=== PATIENT | female | born 1955 | race Caucasian/White ===

== ENCOUNTER 2020-09-11 17:04 | Inpatient (IN) | payer MEDICARE ==
[~2020-09-11] VITALS: Ht 167.6 cm; Wt 120.0 kg
[2020-09-11 18:15] LABS: HEMATOCRIT 39.3 % (36.0-48.0); HEMOGLOBIN 12.7 g/dL (12-16); LYMPHOCYTE ABS# 1.42 10x3/uL (1.18-3.74); MCH 32.6 pg (26.0-34.0); MCHC 32.3 g/dL (31.0-37.0); MEAN PLATELET VOLUME 9.3 fL (7.4-10.4); NEUTROPHIL ABS# 18.11 10x3/uL (1.56-6.13); PLATELET COUNT 210 10x3/uL (130-400); RBC 3.89 10x6/uL (4.00-5.40); WBC 21.2 10x3/uL (4.8-10.8)
[2020-09-11 18:24] LABS: ANION GAP 14.1 mmol/L (8-16); CALCIUM 8.7 mg/dL (8.5-10.1); CARBON DIOXIDE 26.4 mmol/L (21.0-32.0); POTASSIUM - SERUM 3.5 mmol/L (3.5-5.1)
[2020-09-11 18:31] LABS: ALBUMIN 3.1 g/dL (3.4-5.0); BILIRUBIN - TOTAL 3.3 mg/dL (0.2-1.3); PROTEIN - SERUM 7.5 g/dL (6.4-8.2)
[2020-09-11 18:57] LABS: EOSINOPHILS 2 % (0-7); LYMPHOCYTES 11 % (15-50); MONOCYTES 3 % (2-11); NEUTROPHILS 84 % (40-80); PLATELET ESTIMATE NORMAL
[2020-09-11 19:09] LABS: APTT 30.1 SECONDS (22.8-39.4); INR 1.26 (0.85-1.17); PROTIME 14.7 SECONDS (11.6-15.0)
[2020-09-11 19:32] LABS: CKMB 0.7 U/L (0.0-3.6); CREATINE KINASE 423 UL (21-215)
[2020-09-11 19:41] LABS: TROPONIN-I 0.017 ng/mL (0.000-0.060)
[2020-09-11 20:54] LABS: BILIRUBIN NEGATIVE (NEGATIVE); KETONE MODERATE mg/dL (NEGATIVE); NITRITE POSITIVE (NEGATIVE)
[2020-09-11 20:55] LABS: SQUAMOUS EPITHELIAL 0-5 HPF (0-4); WHITE CELLS - URINE 25-50 HPF (0-4)
[2020-09-11 20:56] LABS: BACTERIA MANY HPF (NONE SEEN)
--- NOTE | 2020-09-11 22:55 | NUR ---
RECEIVED REPORT FROM ER, AWAITING PT TRANSFER.
[2020-09-11] MEDS ORDERED: ULTRAM50 MG PO (23:18)
[2020-09-11] MEDS ORDERED: OMEPRAZOLE20 M1 PO (23:21)
[2020-09-11 23:31] VITALS: BP 132/62; BMI 42.3
[2020-09-12] VITALS: BP 132/62
--- NOTE | 2020-09-12 00:20 | NUR ---
RECEIVED PT FROM ER VIA WHEELCHAIR. PT SITTING UP IN BED A&O X4. PIV TO LEFT AC, PATENT AND INFUSING, NO REDNESS OR SWELLING. RIGHT FOOT DEFORMED AND SCARS PRESENT, RASH TO RIGHT CALF. PT ABLE TO AMBULATE WITH ASSIST. PLACED SCDS ON BILAT LOWER EXTREM. EDUCATED PT ON ISP, CL AND NEEDS, VERBALIZED UNDERSTANDING. BED LOW, CL IN REACH.
[2020-09-12 04:00] VITALS: BP 133/59
[2020-09-12 06:46] LABS: CKMB 1.1 U/L (0.0-3.6); CREATINE KINASE 477 UL (21-215); TROPONIN-I 0.021 ng/mL (0.000-0.060)
--- NOTE | 2020-09-12 07:10 | NUR ---
PT RESTING IN BED. PRODUCTIVE COUGH NOTED AT THIS TIME. PT REPORTS TO HAVING SORE THROAT AND SORENESS IN CHEST AREA FROM COUGHING. IV TO LEFT FOREARM WITH NS @ 125ML/HR INFUSING VIA PUMP. SITE WITHOUT REDNESS OR EDEMA NOTED. REDNESS TO RIGHT LOWER EXTREMITY. PT REQUEST ICE CHIPS AT THIS TIME, PROVIDED PT WITH ICE CHIPS TO HELP WITH SORE THROAT. DENIES FURTHER NEEDS AT THIS TIME. CL WITHIN REACH. ENCOURAGED TO CALL WITH NEEDS. CONTINUE POC
[2020-09-12 08:38] VITALS: BP 137/74
[2020-09-12 08:54] LABS: BASOPHILS 0.1 % (0-2); EOSINOPHILS 0 % (0-7); HEMATOCRIT 35.2 % (36.0-48.0); HEMOGLOBIN 11.6 g/dL (12-16); IMMATURE GRANULOCYTES 0.7 % (0-5); LYMPHOCYTE ABS# 1.46 10x3/uL (1.18-3.74); LYMPHOCYTES 7.9 % (15-50); MCH 32.8 pg (26.0-34.0); MCV 99.4 fL (80.0-100.0); MEAN PLATELET VOLUME 9.2 fL (7.4-10.4); NEUTROPHIL ABS# 15.92 10x3/uL (1.56-6.13); NEUTROPHILS 86.3 % (40-80); PLATELET COUNT 180 10x3/uL (130-400); RBC 3.54 10x6/uL (4.00-5.40); WBC 18.4 10x3/uL (4.8-10.8)
[2020-09-12 09:09] LABS: ALBUMIN 2.6 g/dL (3.4-5.0); ALKALINE PHOSPHATASE 86 U/L (30-120); ALT (SGPT) 23 U/L (10-68); BILIRUBIN - TOTAL 2.32 mg/dL (0.2-1.3); CALC OSMOLALITY 277 mosm/kg (275-300); CALCIUM 7.9 mg/dL (8.5-10.1); CARBON DIOXIDE 27.2 mmol/L (21.0-32.0); CHLORIDE - SERUM 104 mmol/L (98-107); CREATININE - SERUM 0.8 mg/dL (0.6-1.3); GLUCOSE 96 mg/dL (74-106); POTASSIUM - SERUM 3.1 mmol/L (3.5-5.1); PROTEIN - SERUM 6.2 g/dL (6.4-8.2); SODIUM 139 mmol/L (136-145); UREA NITROGEN 13 mg/dL (7-18); eGFR NON AFRICAN AMERICAN 76 mL/min (90-120)
[2020-09-12 09:20] LABS: AMYLASE - SERUM 13 U/L (25-115); MAGNESIUM - SERUM 1.9 mg/dL (1.8-2.4)
[2020-09-12 09:26] LABS: LIPASE 35 U/L (73-393)
[2020-09-12 12:15] VITALS: BP 130/64
[2020-09-12 13:59] VITALS: Ht 167.6 cm; Wt 120.0 kg
[2020-09-12 15:49] VITALS: BP 161/74
--- NOTE | 2020-09-12 19:45 | NUR ---
RECEIVED BEDSIDE REPORT. PT LAYING IN BED A&O X4. PIV TO LEFT FOREARM, PATENT AND INFUSING, NO REDNESS OR SWELLING. TELEMETRY IN PLACE, [address]. PT ABLE TO AMBULATE WITH ASSIST. EDUCATED PT ON CL AND NEEDS, VERBALIZED UNDERSTANDING. BED LOW, CL IN REACH.
[2020-09-12 20:00] VITALS: BP 121/70
[2020-09-13 04:00] VITALS: BP 130/63
[2020-09-13 06:38] LABS: BASOPHILS 0.2 % (0-2); EOSINOPHILS 0.5 % (0-7); IMMATURE GRANULOCYTES 0.5 % (0-5); LYMPHOCYTE ABS# 1.76 10x3/uL (1.18-3.74); LYMPHOCYTES 10.6 % (15-50); MCH 32.3 pg (26.0-34.0); MCHC 32.4 g/dL (31.0-37.0); MCV 99.7 fL (80.0-100.0); MEAN PLATELET VOLUME 9.9 fL (7.4-10.4); MONOCYTES 7.3 % (2-11); NEUTROPHILS 80.9 % (40-80); PLATELET COUNT 202 10x3/uL (130-400); RBC 3.41 10x6/uL (4.00-5.40); RDW 14.2 % (11.5-14.5); WBC 16.7 10x3/uL (4.8-10.8)
[2020-09-13 07:05] LABS: ALBUMIN 2.4 g/dL (3.4-5.0); ALKALINE PHOSPHATASE 74 U/L (30-120); ALT (SGPT) 21 U/L (10-68); BILIRUBIN - TOTAL 1.49 mg/dL (0.2-1.3); CALC OSMOLALITY 281 mosm/kg (275-300); CALCIUM 8.2 mg/dL (8.5-10.1); CARBON DIOXIDE 24.8 mmol/L (21.0-32.0); CHLORIDE - SERUM 107 mmol/L (98-107); CREATININE - SERUM 0.7 mg/dL (0.6-1.3); GLUCOSE 84 mg/dL (74-106); PROTEIN - SERUM 6.4 g/dL (6.4-8.2); SODIUM 142 mmol/L (136-145); UREA NITROGEN 12 mg/dL (7-18); eGFR NON AFRICAN AMERICAN 89 mL/min (90-120)
--- NOTE | 2020-09-13 07:08 | NUR ---
PT RESTING IN BED WITH EYES CLOSED. NO ACUTE DISTRESS NOTED AT THIS TIME. IV TO LEFT FOREARM WITH NS @ 125ML/HR INFUSING VIA PUMP. SITE WITHOUT REDNESS OR EDEMA. REDNESS NOTED TO RIGHT LOWER EXTREMITY. NO N/V/D AT THIS TIME. CL WITHIN REACH. ENCOURAGED TO CALL WITH NEEDS. CONTINUE POC
[2020-09-13 09:10] VITALS: BP 149/79
[2020-09-13 12:35] VITALS: BP 142/69
--- NOTE | 2020-09-13 14:46 | NUR ---
RECEIVE SHIFT REPORT. RESTING IN BED WITHOUT ANY COMPLAINTS. CALL LIGHT IN REACH. CONTINUE POC AND SAFETY PRECAUTIONS.
[2020-09-13 16:44] VITALS: BP 141/74
--- NOTE | 2020-09-13 19:45 | NUR ---
RECEIVED BEDSUDE REPORT. PT LAYING IN BED, A&O X4. PIV TO LEFT FOREARM, PATENT AND INFUSING, NO REDNESS OR SWELLING. REDNESS/RASH TO RIGHT CALF, FOOT DERFORED AND SCARS PRESENT. PT ABLE TO AMBUALTE WITH ASSIST. EDUCATED PT ON CL AND NEEDS, VERBALIZED UNDERSTANDING. BED LOW, CL IN REACH.
[2020-09-13 20:00] VITALS: BP 136/62
[2020-09-14 04:00] VITALS: BP 126/64
[2020-09-14 06:06] LABS: BASOPHILS 0.3 % (0-2); EOSINOPHILS 1.9 % (0-7); HEMATOCRIT 33.1 % (36.0-48.0); HEMOGLOBIN 10.7 g/dL (12-16); IMMATURE GRANULOCYTES 0.6 % (0-5); LYMPHOCYTE ABS# 2.36 10x3/uL (1.18-3.74); LYMPHOCYTES 19.8 % (15-50); MCH 32.4 pg (26.0-34.0); MCHC 32.3 g/dL (31.0-37.0); MCV 100.3 fL (80.0-100.0); MEAN PLATELET VOLUME 9.4 fL (7.4-10.4); MONOCYTES 7.9 % (2-11); NEUTROPHIL ABS# 8.26 10x3/uL (1.56-6.13); NEUTROPHILS 69.5 % (40-80); PLATELET COUNT 229 10x3/uL (130-400); RDW 14.3 % (11.5-14.5)
[2020-09-14 06:10] LABS: WBC 11.9 10x3/uL (4.8-10.8)
[2020-09-14 06:52] LABS: ALBUMIN 2.3 g/dL (3.4-5.0); ALKALINE PHOSPHATASE 66 U/L (30-120); ALT (SGPT) 18 U/L (10-68); BILIRUBIN - TOTAL 1.02 mg/dL (0.2-1.3); CALC OSMOLALITY 281 mosm/kg (275-300); CALCIUM 8.1 mg/dL (8.5-10.1); CHLORIDE - SERUM 108 mmol/L (98-107); CREATININE - SERUM 0.8 mg/dL (0.6-1.3); GLUCOSE 90 mg/dL (74-106); POTASSIUM - SERUM 3.4 mmol/L (3.5-5.1); PROTEIN - SERUM 6.2 g/dL (6.4-8.2); SODIUM 142 mmol/L (136-145); UREA NITROGEN 10 mg/dL (7-18); eGFR NON AFRICAN AMERICAN 76 mL/min (90-120)
[2020-09-14 09:11] VITALS: BP 126/68
--- NOTE | 2020-09-14 12:40 | NUR ---
PT ALERT AND ORIENTED. NO NEEDS AT THIS TIME. QUESTIONS ASKED AND ANSWERED ABOUT NEW ABX ROCEPHIN. CL IN REACH. WCTM
[2020-09-14 12:57] VITALS: BP 117/69
--- NOTE | 2020-09-14 14:41 | NUR ---
PT REQUESTING PAIN MEDS BECAUSE SHE FEELS NAUSEOUS AND HAS HAD A BM. PT ASSISTED TO BSC. PT GIVEN FRESH EMESIS BAG, LINENS, AND WIPES. COOL WASH CLOTHES APPLIED TO FOREHEAD AND NECK WELL AN ICE PACK. ZOFRAN GIVEN PER EMAR. LEMON VIEJAS YANA, SALTINE CRACKERS GIVEN. WCTM
--- NOTE | 2020-09-14 19:45 | NUR ---
RECEIVED BEDSIDE REPORT. PT LAYING IN BED A&O X4. PIV TO LEFT FOREARM, PATENT AND INFUSING, NO REDNESS OR SWELLING. RASH/REDNESS TO RIGHT CALF, FOOT DEFORMED. PT ABLE TO AMBUALTE WITH ASSIST. EDUCATED PT ON CL AND NEEDS, VERBALIZED UNDERSTANDING. BED LOW, CL IN REACH.
[2020-09-14 20:00] VITALS: BP 132/62
[2020-09-15 02:55] LABS: BASOPHILS 0.2 % (0-2); EOSINOPHILS 0.8 % (0-7); HEMATOCRIT 35.9 % (36.0-48.0); HEMOGLOBIN 11.7 g/dL (12-16); IMMATURE GRANULOCYTES 1.1 % (0-5); LYMPHOCYTE ABS# 1.78 10x3/uL (1.18-3.74); LYMPHOCYTES 18.8 % (15-50); MCH 32.5 pg (26.0-34.0); MCHC 32.6 g/dL (31.0-37.0); MCV 99.7 fL (80.0-100.0); MEAN PLATELET VOLUME 9.2 fL (7.4-10.4); MONOCYTES 5.8 % (2-11); NEUTROPHIL ABS# 6.95 10x3/uL (1.56-6.13); NEUTROPHILS 73.3 % (40-80); PLATELET COUNT 246 10x3/uL (130-400); RDW 14.2 % (11.5-14.5); WBC 9.5 10x3/uL (4.8-10.8)
[2020-09-15 03:12] LABS: ALBUMIN 2.6 g/dL (3.4-5.0); ANION GAP 11.5 mmol/L (8-16); BILIRUBIN - TOTAL 0.73 mg/dL (0.2-1.3); CALCIUM 8.1 mg/dL (8.5-10.1); CARBON DIOXIDE 28.4 mmol/L (21.0-32.0); CREATININE - SERUM 0.9 mg/dL (0.6-1.3); MAGNESIUM - SERUM 1.8 mg/dL (1.8-2.4); PROTEIN - SERUM 6.7 g/dL (6.4-8.2)
[2020-09-15 03:17] LABS: POTASSIUM - SERUM 2.9 mmol/L (3.5-5.1)
[2020-09-15 04:00] VITALS: BP 133/70
[2020-09-15 09:33] VITALS: BP 120/65
[2020-09-15] MEDS ORDERED: BACTRIM DS TAB1 EAC1 PO (10:49)
[2020-09-15] MEDS ORDERED: FLAGYL500 MG PO (10:49)
--- NOTE | 2020-09-15 11:48 | MORECARE ---
CASE MANAGEMENT DISCHARGE SUMMARY PATIENT: FESTUS GANDHI UNIT: [id number] ADM DATE: 09/11/20 AGE: 65 : 56 SEX: F ROOM/BED: D.2204 AUTHOR: MARCELINO,DOC PHYSICIAN: REFERRING PHYSICIAN: ROOPA COOL MD DATE OF SERVICE: 09/15/20 Case Management Discharge Planning Summary COMMENTS ENTERED DATE: 09/15/20 11:44 CT COMMENT TYPE: Discharge Planning REVIEWER: Beulah Mcmahan CM met with patient at bedside after obtaining verbal consent. CM discussed availability / needs of home health, REHAB and medical equipment. PATIENT DENIES ANY NEEDS. LIVES AT HOME WITH FAMILY. AMBULATORY WITH NO DEVICE USED. PCP IS DR. MIKE. IMM SIGNED AND COPY ON CHART. CM TO FOLLOW AND ASSIST NEEDED. DCP REVIEW SUMMARY ANTICIPATED D/C DATE: EXPECTED LOS : CASE STATUS: DCP Initiated INITIAL REVIEW: 09/11/2020 INITIAL REVIEWER: Beulah Mcmahan FINAL DISCHARGE DISPOSITION: : FINAL REVIEWER: FINAL REVIEW DATE: DCP Focus Questions & Answers DCP REV -DCP Review Added on: 09/15/20 11:43 am QUESTION: ANSWER DCP Screen High Risk Factors: : None Walking limitation: Patient stated self rated walking limitation present? : No Age: : 45 - 65 Disability ranking: : Grade 1: No significant disability DCP Evaluation Patient's ability to cope with chronic illness : d. No chronic illness Mental health screen: : No mental health history Would patient like to participate in any Care Coordination programs (if applicable): : Not applicable DCP Re-evaluation Would patient like to participate in any Care Coordination programs (if applicable): : Not applicable PATIENT: FESTUS GANDHI ENCOUNTER: [id number] MEDICAL RECORD#: [id number] ADMISSION DATE: 09/11/2020 DISCHARGE DATE: ATTENDING MD: SILVINA COOL : AGE: 65 MARITAL STATUS: W DC PLAN ID: [id number] FACILITY: [facility] PRINTED ON: 09/15/20 11:48 CT All edits/amendments must be made on the electronic document DICTATION DATE: 09/15/20 114 MORTGAGE ADVISOR: CM 09/15/20 1148 RPT#: [id number] DC DATE: STATUS: ADM IN [facility] [address] [place] [address] END OF REPORT
[2020-09-15 13:40] VITALS: BP 122/60
--- NOTE | 2020-09-15 18:09 | NUR ---
IV THERAPY REMOVED FROM LEFT AC WITH TIP INTACT. DISCHARGE INSTRUCTIONS GIVEN. PT VERBALIZED UNDERSTANDING. WHEELED TO ER EXIT TO MEET GRANDDAUGHTER
--- NOTE | 2020-09-19 11:59 | MORECARE ---
CASE MANAGEMENT DISCHARGE SUMMARY PATIENT: FESTUS GANDHI UNIT: [id number] ADM DATE: 09/11/20 AGE: 65 : 56 SEX: F ROOM/BED: D.2204 AUTHOR: MARCELINO,DOC PHYSICIAN: REFERRING PHYSICIAN: ROOPA COOL MD DATE OF SERVICE: 09/19/20 Case Management Discharge Planning Summary CT Patient Name: FESTUS GANDHI Attending MD : AKIL COOL, Medical Record: [id number] Encounter : [id number] Facility : [address] [place] [address] Admission Date : 121:16 Center Discharge Date : 09/15/2020 [facility] [place] [address] Date of : DC Plan ID : [id number] Age/Sex/Martia : 65/ F/W Printed on : 09/19/20 11:57 CT DCP Review Details Anticipated D/C: Expected LOS : Case Status : COMPLET - Initial Reviewe: [id number] - Beulah Mcmahan Initial Review: 09/11/2020 Planned Disposi: - Final Discharge: - Final Reviewer : : Final Review : Comments CT Entered Date Type Reviewer 09/15/20 11:44 CT Discharge Planning Beulah Mcmahan Comment CM met with patient at bedside after obtaining verbal consent. CM discussed availability / needs of home health, REHAB and medical equipment. PATIENT DENIES ANY NEEDS. LIVES AT HOME WITH FAMILY. AMBULATORY WITH NO DEVICE USED. PCP IS DR. MIKE. IMM SIGNED AND COPY ON CHART. CM TO FOLLOW AND ASSIST NEEDED. DCP Focus Questions & Answers DCP Screen High Risk Factors: None Walking limitation: Patient stated self rated No walking limitation present? Age: 45 - 65 Disability ranking: Grade 1: No significant disability DCP Evaluation Patient's ability to cope with chronic illness d. No chronic illness Would patient like to participate in any Care Not applicable Coordination programs (if applicable): Mental health screen: No mental health history DCP Re-evaluation Would patient like to participate in any Care Not applicable Coordination programs (if applicable): [facility] FESTUS GANDHI MR#: [id number] /Age/Sex/[id number] /65/F /W Attending Physician Name: Kory [id number] Patient Account:[id number] [facility] Page -1 of 1 All edits/amendments must be made on the electronic document DICTATION DATE: 09/19/201156 MATERIALS PLANNER: CM 09/19/201156 RPT#: [id number] DC DATE:09/15/20 STATUS: DIS IN [facility] [address] [place] [address] END OF REPORT
== END 2020-09-15 18:10 | disposition home or self-care (01) | DRG 603 ==
LOC: D.ER 17:04 → D.MS 21:16
PROVIDERS: Family Medicine; ADMIT Family Medicine; ATTEND Family Medicine
DX: L03.115 Cellulitis of right lower limb (principal); N39.0 Urinary tract infection, site not specified; K52.9 Noninfective gastroenteritis and colitis, unspecified; D72.829 Elevated white blood cell count, unspecified; K21.9 Gastro-esophageal reflux disease without esophagitis; M19.90 Unspecified osteoarthritis, unspecified site; D75.89 Other specified diseases of blood and blood-forming organs; E80.6 Other disorders of bilirubin metabolism

== ENCOUNTER 2020-10-02 12:28 | Inpatient (IN) | payer MEDICARE ==
[~2020-10-02] VITALS: Ht 167.6 cm; Wt 117.9 kg
[~2020-10-02 12:28] MED LIST: BACTRIM DS TAB1 EAC1 PO; FLAGYL500 MG PO; OMEPRAZOLE20 M1 PO; ULTRAM50 MG PO
--- NOTE | 2020-10-02 14:01 | NUR ---
SALINE LOCK TO LEFT AC. BLOOD FOR LABS DRAWN.
[2020-10-02 14:09] LABS: LYMPHOCYTE ABS# 2.47 10x3/uL (1.18-3.74); MCH 33.3 pg (26.0-34.0); MCHC 32.5 g/dL (31.0-37.0); MCV 102.6 fL (80.0-100.0); MEAN PLATELET VOLUME 9.8 fL (7.4-10.4); NEUTROPHIL ABS# 18.65 10x3/uL (1.56-6.13); PLATELET COUNT 299 10x3/uL (130-400); RDW 14.7 % (11.5-14.5); WBC 23.7 10x3/uL (4.8-10.8)
[2020-10-02 14:13] LABS: ANION GAP 12.8 mmol/L (8-16); CALCIUM 8.9 mg/dL (8.5-10.1); CARBON DIOXIDE 28.5 mmol/L (21.0-32.0); CREATININE - SERUM 0.9 mg/dL (0.6-1.3); POTASSIUM - SERUM 3.3 mmol/L (3.5-5.1)
--- NOTE | 2020-10-02 14:20 | NUR ---
UP TO BATHROOM WITH DIARRHEA. INSTRUCTED TO COLLECT URINE IN POTTY HAT.
[2020-10-02 14:23] LABS: ALBUMIN 2.9 g/dL (3.4-5.0); BILIRUBIN - TOTAL 2.91 mg/dL (0.2-1.3); PROTEIN - SERUM 7.5 g/dL (6.4-8.2); TROPONIN-I 0.028 ng/mL (0.000-0.060)
--- NOTE | 2020-10-02 14:30 | NUR ---
DR. MCGINNIS AT BEDSIDE. PATIENT STATES NO URINE OUTPUT, UNABLE TO OBTAIN SPECIMEN.
--- NOTE | 2020-10-02 14:57 | NUR ---
PATIENT INSTRUCTED STOOL SPECIMEN NEEDED WITH NEXT EPISODE OF DIARRHEA.
[2020-10-02 15:30] LABS: LYMPHOCYTES 13 % (15-50); MONOCYTES 1 % (2-11); NEUTROPHILS 86 % (40-80); PLATELET ESTIMATE NORMAL
--- NOTE | 2020-10-02 15:34 | NUR ---
STOOL SPECIMEN TO LAB. NO URINE FOR UA/CULTURE.
[2020-10-02 17:43] LABS: BILIRUBIN NEGATIVE (NEGATIVE); KETONE LARGE mg/dL (NEGATIVE); NITRITE NEGATIVE (NEGATIVE); UROBILINOGEN NORMAL mg/dL (< 2)
[2020-10-02 17:49] LABS: WHITE CELLS - URINE 0-5 HPF (0-4)
[2020-10-02 17:50] LABS: BACTERIA MODERATE HPF (NONE SEEN); SQUAMOUS EPITHELIAL 0-5 HPF (0-4)
--- NOTE | 2020-10-02 18:46 | NUR ---
PT ARRIVED ON UNIT VIA STRETCHER ESCORTED BY ER NURSE. TRANSFERRED TO BED AND POSITIONED FOR COMFORT. IV FLUIDS INFUSING PER ORDER TO PATENT IV ON LEFT AC. BED ALARM TURNED ON PT VERY DROWSEY AT THIS TIME.
[2020-10-02 19:17] VITALS: BP 126/59; BMI 42.0
--- NOTE | 2020-10-02 19:27 | NUR ---
ADMISSION ASSESSMENT AND HISTORY COMPLETE. VITALS STABLE AND PT IS AFEBRILE. DENIES NEED FOR PAIN MED AT THIS TIME...PT REMAINS VERY DROWSEY, BUT RESPONDS TO VOICE.
--- NOTE | 2020-10-02 20:19 | NUR ---
DISCONTINUED NS W/ 20 KCL PER ORDER. REDUCED NS TO 100 ML/HR PER ORDER. GAVE IVP PROTONIX PER NEW ORDER. PT RESTING WITH EYES CLOSED AND EASY RESPIRATIONS. BED ALARM ON FOR SAFETY.
[2020-10-03] VITALS: BP 139/56; BP 140/46
[2020-10-03 04:00] VITALS: BP 139/56
[2020-10-03 04:52] LABS: BASOPHILS 0.2 % (0-2); EOSINOPHILS 1.1 % (0-7); HEMATOCRIT 36.8 % (36.0-48.0); HEMOGLOBIN 11.8 g/dL (12-16); IMMATURE GRANULOCYTES 0.3 % (0-5); LYMPHOCYTE ABS# 1.88 10x3/uL (1.18-3.74); LYMPHOCYTES 11.3 % (15-50); MCH 32.6 pg (26.0-34.0); MCHC 32.1 g/dL (31.0-37.0); MCV 101.7 fL (80.0-100.0); MEAN PLATELET VOLUME 9.9 fL (7.4-10.4); MONOCYTES 8.8 % (2-11); NEUTROPHIL ABS# 13.01 10x3/uL (1.56-6.13); NEUTROPHILS 78.3 % (40-80); PLATELET COUNT 291 10x3/uL (130-400); RBC 3.62 10x6/uL (4.00-5.40); RDW 14.8 % (11.5-14.5)
[2020-10-03 05:02] LABS: WBC 16.6 10x3/uL (4.8-10.8)
[2020-10-03 05:05] LABS: APTT 25.6 SECONDS (22.8-39.4); INR 1.22 (0.85-1.17); PROTIME 14.3 SECONDS (11.6-15.0)
[2020-10-03 05:26] LABS: ALBUMIN 2.4 g/dL (3.4-5.0); BILIRUBIN - TOTAL 1.92 mg/dL (0.2-1.3); CALCIUM 8.2 mg/dL (8.5-10.1); CARBON DIOXIDE 25.8 mmol/L (21.0-32.0); CREATININE - SERUM 0.9 mg/dL (0.6-1.3); PHOSPHOROUS 2.8 mg/dL (2.5-4.9); PROTEIN - SERUM 6.6 g/dL (6.4-8.2)
[2020-10-03 05:27] LABS: ANION GAP 12.1 mmol/L (8-16); POTASSIUM - SERUM 2.9 mmol/L (3.5-5.1)
[2020-10-03 09:34] VITALS: BP 128/58
[2020-10-03 12:39] VITALS: Ht 167.6 cm; Wt 117.9 kg
[2020-10-03 13:23] VITALS: BP 124/60
[2020-10-03 18:55] VITALS: BP 124/62
--- NOTE | 2020-10-04 02:09 | NUR ---
I have reviewed this patient and I concur with the Shift Assessment completed by the Licensed Practical Nurse today this shift.
[2020-10-04 04:00] VITALS: BP 103/40
[2020-10-04 05:42] LABS: BASOPHILS 0.2 % (0-2); EOSINOPHILS 3.4 % (0-7); HEMATOCRIT 37.6 % (36.0-48.0); IMMATURE GRANULOCYTES 0.5 % (0-5); LYMPHOCYTES 10.1 % (15-50); MCH 32.6 pg (26.0-34.0); MCHC 31.9 g/dL (31.0-37.0); MCV 102.2 fL (80.0-100.0); MEAN PLATELET VOLUME 10.1 fL (7.4-10.4); MONOCYTES 6.3 % (2-11); NEUTROPHIL ABS# 11.02 10x3/uL (1.56-6.13); NEUTROPHILS 79.5 % (40-80); PLATELET COUNT 317 10x3/uL (130-400); RBC 3.68 10x6/uL (4.00-5.40); RDW 14.9 % (11.5-14.5); WBC 13.9 10x3/uL (4.8-10.8)
[2020-10-04 06:01] LABS: CALC OSMOLALITY 274 mosm/kg (275-300); CARBON DIOXIDE 24.7 mmol/L (21.0-32.0); CHLORIDE - SERUM 104 mmol/L (98-107); CREATININE - SERUM 0.7 mg/dL (0.6-1.3); GLUCOSE 77 mg/dL (74-106); MAGNESIUM - SERUM 1.8 mg/dL (1.8-2.4); PHOSPHOROUS 2.5 mg/dL (2.5-4.9); POTASSIUM - SERUM 3.2 mmol/L (3.5-5.1); SODIUM 140 mmol/L (136-145); eGFR NON AFRICAN AMERICAN 89 mL/min (90-120)
[2020-10-04 06:02] LABS: UREA NITROGEN 5 mg/dL (7-18)
[2020-10-04 08:49] VITALS: BP 128/68
[2020-10-04 12:19] VITALS: BP 129/60
[2020-10-04 18:40] VITALS: BP 116/41
[2020-10-04 20:00] VITALS: BP 121/67
[2020-10-05] VITALS: BP 106/49
--- NOTE | 2020-10-05 00:58 | NUR ---
I have reviewed this patient and I concur with the Shift Assessment completed by the Licensed Practical Nurse today this shift.
[2020-10-05 04:00] VITALS: BP 106/52
[2020-10-05 06:36] LABS: BASOPHILS 0.2 % (0-2); EOSINOPHILS 4.9 % (0-7); HEMOGLOBIN 11.3 g/dL (12-16); LYMPHOCYTE ABS# 2.06 10x3/uL (1.18-3.74); LYMPHOCYTES 19.6 % (15-50); MCH 32.7 pg (26.0-34.0); MCHC 32.3 g/dL (31.0-37.0); MCV 101.2 fL (80.0-100.0); MEAN PLATELET VOLUME 9.7 fL (7.4-10.4); MONOCYTES 8.8 % (2-11); NEUTROPHIL ABS# 6.88 10x3/uL (1.56-6.13); NEUTROPHILS 65.5 % (40-80); PLATELET COUNT 299 10x3/uL (130-400); RBC 3.46 10x6/uL (4.00-5.40); RDW 15.1 % (11.5-14.5); WBC 10.5 10x3/uL (4.8-10.8)
[2020-10-05 07:00] LABS: CALC OSMOLALITY 281 mosm/kg (275-300); CALCIUM 8.4 mg/dL (8.5-10.1); CARBON DIOXIDE 26.6 mmol/L (21.0-32.0); CHLORIDE - SERUM 108 mmol/L (98-107); CREATININE - SERUM 0.6 mg/dL (0.6-1.3); GLUCOSE 88 mg/dL (74-106); MAGNESIUM - SERUM 2.2 mg/dL (1.8-2.4); PHOSPHOROUS 2.3 mg/dL (2.5-4.9); POTASSIUM - SERUM 3.2 mmol/L (3.5-5.1); SODIUM 143 mmol/L (136-145); UREA NITROGEN 6 mg/dL (7-18); eGFR NON AFRICAN AMERICAN > 90 mL/min (90-120)
[2020-10-05 08:42] VITALS: BP 121/59
--- NOTE | 2020-10-05 12:50 | NUR ---
Nutrition follow-up: Pt NPO for cholecystectomy today Labs reviewed WT: 259# +BM with nausea, vomiting during PIPPIDA prep. Will need nutrition support started within 48 hours if diet unable to advance post-surgery. RDN follow-up: 10/09/20
[2020-10-05 13:25] VITALS: BP 136/71
[2020-10-05 17:41] VITALS: BP 123/59
--- NOTE | 2020-10-05 18:39 | NUR ---
0700 BEDSIDE REPORT RECEIVED PT REMAINS NPO DAUGHTER REMAINS AT BEDSIDE
--- NOTE | 2020-10-05 18:40 | NUR ---
1600 PREOP MEDS GIVEN INSTRUCTED
--- NOTE | 2020-10-05 19:02 | NUR ---
1840 TRANSPORTED TO SURGERY BY OR STAFF
[2020-10-05 21:36] VITALS: BP 160/69
[2020-10-06] VITALS: BP 162/80
[2020-10-06 04:00] VITALS: BP 156/82
[2020-10-06 05:41] LABS: BASOPHILS 0.1 % (0-2); EOSINOPHILS 0.1 % (0-7); HEMATOCRIT 35.6 % (36.0-48.0); HEMOGLOBIN 11.4 g/dL (12-16); IMMATURE GRANULOCYTES 2.5 % (0-5); LYMPHOCYTE ABS# 1.13 10x3/uL (1.18-3.74); LYMPHOCYTES 6.6 % (15-50); MCH 32.5 pg (26.0-34.0); MCV 101.4 fL (80.0-100.0); MEAN PLATELET VOLUME 9.7 fL (7.4-10.4); MONOCYTES 6.9 % (2-11); NEUTROPHIL ABS# 14.45 10x3/uL (1.56-6.13); NEUTROPHILS 83.8 % (40-80); PLATELET COUNT 273 10x3/uL (130-400); RBC 3.51 10x6/uL (4.00-5.40); RDW 15.2 % (11.5-14.5)
[2020-10-06 05:48] LABS: WBC 17.2 10x3/uL (4.8-10.8)
[2020-10-06 06:02] LABS: CALC OSMOLALITY 282 mosm/kg (275-300); CALCIUM 8.1 mg/dL (8.5-10.1); CHLORIDE - SERUM 106 mmol/L (98-107); CREATININE - SERUM 0.7 mg/dL (0.6-1.3); GLUCOSE 135 mg/dL (74-106); MAGNESIUM - SERUM 1.8 mg/dL (1.8-2.4); PHOSPHOROUS 3.7 mg/dL (2.5-4.9); POTASSIUM - SERUM 3.9 mmol/L (3.5-5.1); SODIUM 142 mmol/L (136-145); UREA NITROGEN 6 mg/dL (7-18); eGFR NON AFRICAN AMERICAN 89 mL/min (90-120)
[2020-10-06 08:46] VITALS: BP 156/78
[2020-10-06 12:00] VITALS: BP 140/55
[2020-10-06 17:11] VITALS: BP 137/53
[2020-10-06 21:45] VITALS: BP 161/76
[2020-10-07] VITALS (7 sets, daily range): BP systolic 113–150; BP diastolic 50–76
--- NOTE | 2020-10-07 02:50 | NUR ---
Assumed care of pt after report/rounds. Pt continues to lay in bed and c/o "cramping" to ABD. Pt did try to look at incisions this night. 4 Lap kate sites remains covered with steri strips and approximated. Pt does walk to bathroom with SBA. Pt is passing gas at this time but, No BM yet.In bed resting at this time with IV fluids through patent RAC site, per order. No s/sx of infiltrate to same.
[2020-10-07 05:22] LABS: BASOPHILS 0.1 % (0-2); EOSINOPHILS 0 % (0-7); HEMATOCRIT 32.2 % (36.0-48.0); HEMOGLOBIN 10.5 g/dL (12-16); IMMATURE GRANULOCYTES 2.7 % (0-5); LYMPHOCYTE ABS# 1.76 10x3/uL (1.18-3.74); LYMPHOCYTES 10.4 % (15-50); MCH 32.6 pg (26.0-34.0); MCHC 32.6 g/dL (31.0-37.0); MEAN PLATELET VOLUME 9.5 fL (7.4-10.4); NEUTROPHIL ABS# 12.94 10x3/uL (1.56-6.13); NEUTROPHILS 76.8 % (40-80); PLATELET COUNT 257 10x3/uL (130-400); RBC 3.22 10x6/uL (4.00-5.40); RDW 15.3 % (11.5-14.5); WBC 16.9 10x3/uL (4.8-10.8)
[2020-10-07 05:36] LABS: CALCIUM 7.6 mg/dL (8.5-10.1); CHLORIDE - SERUM 109 mmol/L (98-107); CREATININE - SERUM 0.7 mg/dL (0.6-1.3); GLUCOSE 125 mg/dL (74-106); MAGNESIUM - SERUM 1.8 mg/dL (1.8-2.4); SODIUM 144 mmol/L (136-145); eGFR NON AFRICAN AMERICAN 89 mL/min (90-120)
[2020-10-07 05:40] LABS: CALC OSMOLALITY 284 mosm/kg (275-300); CARBON DIOXIDE 26.9 mmol/L (21.0-32.0); PHOSPHOROUS 2.6 mg/dL (2.5-4.9); UREA NITROGEN 4 mg/dL (7-18)
--- NOTE | 2020-10-08 04:06 | NUR ---
Assumed care of pt after report/rounds. Pt remains A&OX4 and verbalizes wants/needs clearly and without hesitation. Pt's IV site to RAC no longer viable and resited to LFA. IV infusing to same per order. Did have one emesis last evening before Zofran could be administered. This nurse did not visualize but, APRON MAN reports emesis was yellow/mucousy. Zofran was effective for pain relief and pt has had increased pain/discomfort and hyperactive bowel sounds after emesis. Continues to pass gas but, No BM yet. Pt has used PRN pain meds this noc with good effect. In bed resting at this time.
[2020-10-08 05:56] LABS: CALC OSMOLALITY 282 mosm/kg (275-300); CALCIUM 7.7 mg/dL (8.5-10.1); CARBON DIOXIDE 25.1 mmol/L (21.0-32.0); CHLORIDE - SERUM 108 mmol/L (98-107); CREATININE - SERUM 0.6 mg/dL (0.6-1.3); GLUCOSE 84 mg/dL (74-106); MAGNESIUM - SERUM 1.9 mg/dL (1.8-2.4); PHOSPHOROUS 2.5 mg/dL (2.5-4.9); SODIUM 144 mmol/L (136-145); UREA NITROGEN 5 mg/dL (7-18); eGFR NON AFRICAN AMERICAN > 90 mL/min (90-120)
[2020-10-08 06:06] LABS: BASOPHILS 0.5 % (0-2); EOSINOPHILS 0.6 % (0-7); HEMOGLOBIN 10.9 g/dL (12-16); IMMATURE GRANULOCYTES 9.3 % (0-5); MCH 32.6 pg (26.0-34.0); MCHC 32.1 g/dL (31.0-37.0); MCV 101.8 fL (80.0-100.0); MEAN PLATELET VOLUME 10.1 fL (7.4-10.4); MONOCYTES 10.1 % (2-11); NEUTROPHIL ABS# 9.25 10x3/uL (1.56-6.13); NEUTROPHILS 61.5 % (40-80); PLATELET COUNT 253 10x3/uL (130-400); RBC 3.34 10x6/uL (4.00-5.40); RDW 15.6 % (11.5-14.5)
[2020-10-08 06:07] LABS: POTASSIUM - SERUM 2.7 mmol/L (3.5-5.1)
[2020-10-08 06:42] VITALS: BP 149/74
[2020-10-08 09:47] VITALS: BP 144/77
[2020-10-08 13:51] VITALS: BP 139/73
[2020-10-08 18:20] VITALS: BP 130/60
[2020-10-09 03:06] LABS: OVA + PARASITE EXAM Final report (())
--- NOTE | 2020-10-09 04:05 | NUR ---
Pt is in bed resting at this time. Pt did get up to the bathroom once during the night. PRN pain med is effective for pain relief. No further c/o pain and pt has been resting comfortably.
[2020-10-09 08:13] VITALS: BP 151/70
[2020-10-09 10:37] LABS: BASOPHILS 0.5 % (0-2); EOSINOPHILS 1.6 % (0-7); HEMATOCRIT 34.9 % (36.0-48.0); HEMOGLOBIN 11.2 g/dL (12-16); IMMATURE GRANULOCYTES 9.1 % (0-5); LYMPHOCYTE ABS# 2.15 10x3/uL (1.18-3.74); MCH 32.5 pg (26.0-34.0); MCHC 32.1 g/dL (31.0-37.0); MCV 101.2 fL (80.0-100.0); MEAN PLATELET VOLUME 9.9 fL (7.4-10.4); MONOCYTES 7.5 % (2-11); NEUTROPHIL ABS# 10.31 10x3/uL (1.56-6.13); NEUTROPHILS 67.3 % (40-80); PLATELET COUNT 245 10x3/uL (130-400); RBC 3.45 10x6/uL (4.00-5.40); RDW 15.7 % (11.5-14.5); WBC 15.3 10x3/uL (4.8-10.8)
[2020-10-09 10:52] LABS: ALBUMIN 2.2 g/dL (3.4-5.0); ALKALINE PHOSPHATASE 51 U/L (30-120); ALT (SGPT) 11 U/L (10-68); BILIRUBIN - TOTAL 0.95 mg/dL (0.2-1.3); CALCIUM 7.9 mg/dL (8.5-10.1); CARBON DIOXIDE 25.4 mmol/L (21.0-32.0); CHLORIDE - SERUM 106 mmol/L (98-107); CREATININE - SERUM 0.6 mg/dL (0.6-1.3); GLUCOSE 84 mg/dL (74-106); MAGNESIUM - SERUM 1.9 mg/dL (1.8-2.4); PROTEIN - SERUM 5.7 g/dL (6.4-8.2); SODIUM 144 mmol/L (136-145); eGFR NON AFRICAN AMERICAN > 90 mL/min (90-120)
[2020-10-09 10:55] LABS: CALC OSMOLALITY 282 mosm/kg (275-300); UREA NITROGEN 3 mg/dL (7-18)
[2020-10-09 10:57] LABS: POTASSIUM - SERUM 2.7 mmol/L (3.5-5.1)
[2020-10-09 12:44] VITALS: BP 146/68
--- NOTE | 2020-10-09 13:41 | NUR ---
NUTRITION FOLLOW UP: COMMENTS: Patient diet now advanced to Regular Diet. Patient experiencing loose yellow bowel movements. Patient eating well prior to NPO with last 3 meals at 83% avg. No significant weight changes. DIET: Regular Diet PO INTAKE: 83% avg for last 3 meals on 10/07 WEIGHT: 09/12-264 lbs; 10/03-264 lbs SKIN: No PU or Chronic Wounds BM: x 2 on 10/09 SIG MEDS: Nystatin, Probiotic, KCl, MagOx, Protonix IV Fluids: NS @ 100 cc/hr SIG LABS: K-2.7(CL), BUN-3(L), Ca-7.9(L), Albumin-2.2(L) RECOMMENDATIONS: -Will provide food choices with selective menus and honor food preferences -Continue Regular Diet as tolerated -Offer nutritional supplements if PO intake avg becomes <50% for meals RD to follow up on 10/12
[2020-10-09 17:06] VITALS: BP 142/69
[2020-10-10] VITALS: BP 145/66
[2020-10-10 04:00] VITALS: BP 154/62
[2020-10-10 06:28] LABS: ALBUMIN 2.1 g/dL (3.4-5.0); ALKALINE PHOSPHATASE 47 U/L (30-120); ALT (SGPT) 9 U/L (10-68); BILIRUBIN - TOTAL 0.82 mg/dL (0.2-1.3); CALC OSMOLALITY 282 mosm/kg (275-300); CALCIUM 7.7 mg/dL (8.5-10.1); CARBON DIOXIDE 30.3 mmol/L (21.0-32.0); CHLORIDE - SERUM 109 mmol/L (98-107); CREATININE - SERUM 0.6 mg/dL (0.6-1.3); GLUCOSE 104 mg/dL (74-106); MAGNESIUM - SERUM 1.8 mg/dL (1.8-2.4); POTASSIUM - SERUM 3.4 mmol/L (3.5-5.1); PROTEIN - SERUM 5.4 g/dL (6.4-8.2); SODIUM 144 mmol/L (136-145); eGFR NON AFRICAN AMERICAN > 90 mL/min (90-120)
[2020-10-10 06:29] LABS: UREA NITROGEN 1 mg/dL (7-18)
[2020-10-10 06:58] LABS: HEMATOCRIT 32.8 % (36.0-48.0); HEMOGLOBIN 10.8 g/dL (12-16); MCHC 32.9 g/dL (31.0-37.0); MCV 100.3 fL (80.0-100.0); NEUTROPHIL ABS# 9.25 10x3/uL (1.56-6.13); PLATELET COUNT 238 10x3/uL (130-400); RBC 3.27 10x6/uL (4.00-5.40); RDW 15.8 % (11.5-14.5); WBC 15.5 10x3/uL (4.8-10.8)
[2020-10-10 08:30] VITALS: BP 144/59
[2020-10-10 13:26] LABS: EOSINOPHILS 4 % (0-7); LYMPHOCYTES 19 % (15-50); MONOCYTES 14 % (2-11); NEUTROPHILS 59 % (40-80)
[2020-10-10 13:27] LABS: PLATELET ESTIMATE NORMAL
[2020-10-10 14:00] VITALS: BP 154/66
[2020-10-10 17:29] VITALS: BP 141/67
[2020-10-10 20:00] VITALS: BP 146/83
[2020-10-11] VITALS: BP 118/59
[2020-10-11 04:00] VITALS: BP 130/58
--- NOTE | 2020-10-11 04:24 | NUR ---
Assumed care of pt after report/rounds last HS. Pt remains A&OX4 and verbalizes wants/needs clearly without hesitation or difficulty. Did c/o pain once last HS with PRN pain med administered and eff for same. Grand daughter in to visit with pt. Pt teaching regarding anticipated procedure today and NPO status. Pt verbalized understanding of same. Pt utilizing call light appropriately to request assist. In bed resting at this time.
[2020-10-11 07:11] LABS: BASOPHILS 0.5 % (0-2); EOSINOPHILS 4.1 % (0-7); HEMATOCRIT 34.1 % (36.0-48.0); HEMOGLOBIN 10.8 g/dL (12-16); LYMPHOCYTE ABS# 2.83 10x3/uL (1.18-3.74); LYMPHOCYTES 19.9 % (15-50); MCH 32.1 pg (26.0-34.0); MCHC 31.7 g/dL (31.0-37.0); MCV 101.5 fL (80.0-100.0); MEAN PLATELET VOLUME 10.2 fL (7.4-10.4); MONOCYTES 8.7 % (2-11); NEUTROPHIL ABS# 8.63 10x3/uL (1.56-6.13); NEUTROPHILS 60.8 % (40-80); PLATELET COUNT 253 10x3/uL (130-400); RBC 3.36 10x6/uL (4.00-5.40); WBC 14.2 10x3/uL (4.8-10.8)
[2020-10-11 08:04] LABS: ALBUMIN 2.2 g/dL (3.4-5.0); ALKALINE PHOSPHATASE 49 U/L (30-120); ALT (SGPT) 11 U/L (10-68); BILIRUBIN - TOTAL 0.79 mg/dL (0.2-1.3); CALC OSMOLALITY 284 mosm/kg (275-300); CALCIUM 7.2 mg/dL (8.5-10.1); CHLORIDE - SERUM 109 mmol/L (98-107); CREATININE - SERUM 0.7 mg/dL (0.6-1.3); GLUCOSE 99 mg/dL (74-106); MAGNESIUM - SERUM 1.6 mg/dL (1.8-2.4); POTASSIUM - SERUM 3.1 mmol/L (3.5-5.1); PROTEIN - SERUM 5.1 g/dL (6.4-8.2); SODIUM 145 mmol/L (136-145); eGFR NON AFRICAN AMERICAN 89 mL/min (90-120)
[2020-10-11 08:05] LABS: UREA NITROGEN 2 mg/dL (7-18)
[2020-10-11 08:47] VITALS: BP 137/72
--- NOTE | 2020-10-11 10:05 | NUR ---
RESTING IN BED, NO DISTRESS NOTED, ISOLATION FOR C-DIFF, NPO FOR PIPPIDA SCAN, IV PER R HAND
--- NOTE | 2020-10-11 12:17 | NUR ---
TAKEN TO [facility] PER BED FOR YOUNG
[2020-10-11 12:25] VITALS: BP 141/71
[2020-10-11 16:57] VITALS: BP 122/71
[2020-10-11 20:00] VITALS: BP 121/58
--- NOTE | 2020-10-12 00:56 | NUR ---
PT IN BED RESTING. COMPLAINED ABOUT NOT GETTING A DINNER TRAY. PT WAS GIVEN A BOX LUNCH AND SNACKS. PT COMPLAINED OF PAIN AND PAIN MEDICATION WAS GIVEN AND EFFECTIVE. NO OTHER DISTRESS NOTED. BED IN LOW POSITION WITH CALL LIGHT IN REACH.
[2020-10-12 04:00] VITALS: BP 117/60
[2020-10-12 06:13] LABS: BASOPHILS 0.4 % (0-2); EOSINOPHILS 4.6 % (0-7); HEMATOCRIT 33.7 % (36.0-48.0); HEMOGLOBIN 10.7 g/dL (12-16); LYMPHOCYTES 21.7 % (15-50); MCH 32.4 pg (26.0-34.0); MCHC 31.8 g/dL (31.0-37.0); MCV 102.1 fL (80.0-100.0); MEAN PLATELET VOLUME 10.2 fL (7.4-10.4); MONOCYTES 8.7 % (2-11); NEUTROPHIL ABS# 7.82 10x3/uL (1.56-6.13); NEUTROPHILS 60.6 % (40-80); PLATELET COUNT 260 10x3/uL (130-400); RDW 16.3 % (11.5-14.5); WBC 12.9 10x3/uL (4.8-10.8)
[2020-10-12 06:33] LABS: ALBUMIN 2.2 g/dL (3.4-5.0); ALKALINE PHOSPHATASE 48 U/L (30-120); ALT (SGPT) 8 U/L (10-68); BILIRUBIN - TOTAL 0.81 mg/dL (0.2-1.3); CALC OSMOLALITY 282 mosm/kg (275-300); CALCIUM 7.8 mg/dL (8.5-10.1); CARBON DIOXIDE 28.3 mmol/L (21.0-32.0); CHLORIDE - SERUM 109 mmol/L (98-107); CREATININE - SERUM 0.6 mg/dL (0.6-1.3); GLUCOSE 100 mg/dL (74-106); MAGNESIUM - SERUM 2.2 mg/dL (1.8-2.4); POTASSIUM - SERUM 3.2 mmol/L (3.5-5.1); PROTEIN - SERUM 5.6 g/dL (6.4-8.2); SODIUM 144 mmol/L (136-145); UREA NITROGEN 2 mg/dL (7-18); eGFR NON AFRICAN AMERICAN > 90 mL/min (90-120)
[2020-10-12 08:48] VITALS: BP 134/66
[2020-10-12] MEDS ORDERED: FLAGYL500 MG PO (12:38)
[2020-10-12] MEDS ORDERED: VANCOCIN HCL250 MG PO (12:39)
[2020-10-12 12:46] VITALS: BP 129/63
--- NOTE | 2020-10-12 14:00 | NUR ---
NUTRITION FOLLOW UP: COMMENTS: Patient ate 50% of breakfast this AM. No new weight since 10/03. DIET: Regular Diet PO INTAKE: 50% x 1 meal WEIGHT: 10/03- 260 lbs BM: x 5 on 10/11 SIG MEDS: Nystatin, Probiotic, KCl, MagOx, Protonix, IV FLUIDS: NS @ 100 cc/hr SIG LABS: K-3.2(L), Cl-109(H), BUN-2(L), Ca-7.9(L), ALT-8(L), Albumin-2.2(L) RECOMMENDATIONS: Continue regular diet as tolerated Offer nutritional supplements if PO Intake becomes <50% avg for meals Encourage PO intake RD to follow up on 10/16
[2020-10-12] MEDS ORDERED: HYDROCODON-ACE1 EAC7 PO (14:15)
[2020-10-12] MEDS ORDERED: ULTRAM50 MG PO (14:26)
--- NOTE | 2020-10-12 14:59 | MORECARE ---
CASE MANAGEMENT DISCHARGE SUMMARY PATIENT: FESTUS GANDHI UNIT: [id number] ADM DATE: 10/02/20 AGE: 65 : 57 SEX: F ROOM/BED: [facility] AUTHOR: MARCELINODOC PHYSICIAN: REFERRING PHYSICIAN: TABATHA MILNRE MD DATE OF SERVICE: 10/12/20 Case Management Discharge Planning Summary DCP REVIEW SUMMARY ANTICIPATED D/C DATE: EXPECTED LOS : CASE STATUS: DCP Initiated INITIAL REVIEW: 10/02/2020 INITIAL REVIEWER: Merary Peña FINAL DISCHARGE DISPOSITION: 01 : Home or Self Care (Routine Discharge) FINAL REVIEWER: FINAL REVIEW DATE: DCP Focus Questions & Answers QUESTION: ANSWER : PATIENT: FESTUS GANDHI ENCOUNTER: [id number] MEDICAL RECORD#: [id number] ADMISSION DATE: 10/02/2020 DISCHARGE DATE: ATTENDING MD: TABATHA ROWLEY : AGE: 65 MARITAL STATUS: W DC PLAN ID: [id number] FACILITY: [facility] PRINTED ON: 10/12/20 14:59 CT All edits/amendments must be made on the electronic document DICTATION DATE: 10/12/201458 REPAIR ARMATURE WINDER HELPER: CM 10/12/20 145 RPT#: [id number] DC DATE: STATUS: ADM IN [facility] [address] [place] [address] END OF REPORT
--- NOTE | 2020-10-12 15:13 | MORECARE ---
CASE MANAGEMENT DISCHARGE SUMMARY PATIENT: FESTUS GANDHI UNIT: [id number] ADM DATE: 10/02/20 AGE: 65 : 57 SEX: F ROOM/BED: D.2205 AUTHOR: MARCELINO,DOC PHYSICIAN: REFERRING PHYSICIAN: TABATHA MILNER MD DATE OF SERVICE: 10/12/20 Case Management Discharge Planning Summary COMMENTS ENTERED DATE: 10/12/20 14:56 CT COMMENT TYPE: Discharge Planning REVIEWER: Merary Peña CM met with patient to complete initial dc planning assessment. CM educated patient on the CM role and verbal consent given by patient to complete assessment. Patient lives at home with his 3 grandkids, where she states she is independent with her care. At discharge patient plans to return home and feels this is a safe discharge. CM discussed availability of home health, rehab services, and medical equipment. She refused home health and I got the refusal form signed. IMM also signed and explained. Her granddaughter will be her winch driver home. Dr Vieira is her PCP & she has a wheelchair at home, but does not use it. She said she came back to the hospital because of her gallbladder but now that it is out she is so much better. Patient denied known discharge needs at this time. CM will continue to follow and will assist as needed with dc plans/needs. DCP REVIEW SUMMARY ANTICIPATED D/C DATE: EXPECTED LOS : CASE STATUS: DCP Initiated INITIAL REVIEW: 10/02/2020 INITIAL REVIEWER: Merary Peña FINAL DISCHARGE DISPOSITION: 01 : Home or Self Care (Routine Discharge) FINAL REVIEWER: FINAL REVIEW DATE: DCP Focus Questions & Answers QUESTION: ANSWER : PATIENT: FESTUS GANDHI ENCOUNTER: [id number] MEDICAL RECORD#: [id number] ADMISSION DATE: 10/02/2020 DISCHARGE DATE: ATTENDING MD: TABATHA ROWLEY : AGE: 65 MARITAL STATUS: W DC PLAN ID: [id number] FACILITY: [facility] PRINTED ON: 10/12/20 15:13 CT All edits/amendments must be made on the electronic document DICTATION DATE: 10/12/201512 AEROSPACE MANAGER: CM 10/12/201512 RPT#: [id number] DC DATE: STATUS: ADM IN [facility] [address] [place] [address] END OF REPORT
--- NOTE | 2020-10-12 15:27 | NUR ---
IV DISCONTINUED AND VERBALIZED UNDERSTANDING OF DISCHARGE INSTRUCTIONS. STABLE AT TIME DISCHARGE.
== END 2020-10-12 15:28 | disposition home or self-care (01) | DRG 357 ==
LOC: D.ER 12:28 → D.MS 16:50
PROVIDERS: Emergency Medicine; Family Medicine; ADMIT Emergency Medicine; ATTEND Emergency Medicine
PROC: 0FT44ZZ Resection of Gallbladder, Percutaneous Endoscopic Approach (ICD-10-PCS; principal; 2020-10-02)
PROC: BF131ZZ Fluoroscopy of Gallbladder and Bile Ducts using Low Osmolar Contrast (ICD-10-PCS; 2020-10-02)
PROC: 0FB03ZX Excision of Liver, Percutaneous Approach, Diagnostic (ICD-10-PCS; 2020-10-02)
DX: A04.72 Enterocolitis due to Clostridium difficile, not specified as recurrent (principal); N39.0 Urinary tract infection, site not specified; Z68.41 Body mass index [BMI] 40.0-44.9, adult; A04.5 Campylobacter enteritis; K21.9 Gastro-esophageal reflux disease without esophagitis; E66.01 Morbid (severe) obesity due to excess calories; K80.20 Calculus of gallbladder without cholecystitis without obstruction; R26.9 Unspecified abnormalities of gait and mobility; M19.90 Unspecified osteoarthritis, unspecified site